=== PATIENT | male | born 1960 | race Native Hawaiian/Other Pacific Islander ===

== ENCOUNTER 2016-06-21 04:13 | Emergency (ER) | payer BC ==
[~2016-06-21] VITALS: Ht 167.6 cm; Wt 98.0 kg
[~2016-06-21 04:13] MED LIST: ASPIR-8181 MG OR; HYDR25TA60 PO; LOSA50TA PO
== END 2016-06-21 05:48 | disposition home or self-care (01) ==
LOC: ED 04:13
DX: J02.0 Streptococcal pharyngitis (principal)
CPT/HCPCS: 87804; 87880; 99283

== ENCOUNTER 2018-07-10 17:34 | Emergency (ER) | payer OTHER ==
[~2018-07-10] VITALS: Ht 170.2 cm; Wt 94.8 kg
[2018-07-10 18:29] VITALS: BP 138/90; TEMP 99
== END 2018-07-10 20:22 | disposition home or self-care (01) ==
LOC: ED 17:34
DX: R51 Headache (principal); R03.0 Elevated blood-pressure reading, without diagnosis of hypertension
CPT/HCPCS: 99281

== ENCOUNTER 2019-04-30 17:50 | Emergency (ER) | payer OTHER ==
[~2019-04-30] VITALS: Ht 170.2 cm; Wt 98.0 kg
[2019-04-30 17:59] VITALS: BP 132/83; TEMP 98.2
== END 2019-04-30 20:03 | disposition home or self-care (01) ==
LOC: ED 17:50
PROC: 2W3QX1Z Immobilization of Right Lower Leg using Splint (ICD-10-PCS; principal; 2019-04-30)
DX: S93.491A Sprain of other ligament of right ankle, initial encounter (principal); X50.1XXA Overexertion from prolonged static or awkward postures, initial encounter; W10.8XXA Fall (on) (from) other stairs and steps, initial encounter; Y92.89 Other specified places as the place of occurrence of the external cause
CPT/HCPCS: 96372; 99282; 99283; J1885